=== PATIENT | female | born 1990 | race Caucasian/White ===

== ENCOUNTER 2016-09-17 05:36 | Inpatient (IN) | payer MEDICARE, OTHER ==
[2016-09-17 06:02] VITALS: BMI 38.6
[2016-09-17] MEDS ORDERED: Oxycodone/Acetaminophen 5/325 mg Tab PO PRN ×2 (06:25)
--- NOTE | 2016-09-17 06:45 | OBHP ---
Datetime: 09/17/2016 06:33 IP Adm Impression: Postterm, intrauterine ; Active labor; Intact Membranes IP Admit Plan: Admit to unit; Initiate labor protocol Admit Comment, IP Provider: 26 yo , NANY 09/15/16, EGA 40w 2d c/o contractions since 2100 hour s; stronger at 0400 hours. (+) mucoid discharge. Denied VB. care: [facility]; UTI; Rh negative - received Rhogam. P Ob: x 1: 2012, male 6lb 12oz - [facility]; no complications. 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 Denies STIs PMH: asthma; last attack 02/2016 PSH: D_C x 2 NKDA Meds: PNV Soc Hx: denies tobacco, illicit drug or EtOH use. x 4 years; lives with and son Fam Hx: Mother alive 60 y.o. - HTN, pre-DM. Father alive 75 y.o. HTN. MGM - colon cancer. No othe r fam h/o cancer P.E.: as above. Obese, in pain with contractions. Awake, alert, oriented to time, person and place . Pleasant and cooperative. at her side. Assssment: 26 yo P1021, 40w 2d, end of Stage 1 of labor. GBS (-). Rh negative, S/P Rhogam. Clinica lly stable. Encouraged to push. See delivery note Plan: 1) Admit 2) Admission labs 3) IVFs 4) Post orders, including Rhogam evaluation Pelvic Type - PN: Adequate Extremities - PN: Normal Abdomen - PN: Normal Back - PN: Normal Breast - PN: Not Done Lungs - PN: Normal Heart - PN: Normal Thyroid - PN: Not Done Neurologic - PN: Normal HEENT - PN: Normal General - PN: Normal Presentation-Admit: Vertex FHR - Baseline A Provider: 135 Contraction Comments Provider: 2-3 Comments, ACOG Physical Exam: Skin: warm, dry Fully dilated and encouraged to push All other systems reviewed and are negative Gestation - Est Wks by US: 40w 2d IP Hx Assessment: The History has been Reviewed and is Current EGA AdmitDate IP: 40.2 IP Indication for Induction: Not Applicable IP Chief Complaint: Uterine contractions NICHD Variability Prov Fetus A: Moderate 6-25bpm NICHD Accel Fetus A IP Provider: 10X10 FHR Category Provider Fetus A: Category I NICHD Decel Fetus A IP Provider: None Dilatation, Provider: 10 Effacement, Provider: 100 Station, Provider: 1 Genitourinary Exam: Normal DTRs - PN: Not Done
--- NOTE | 2016-09-17 06:49 | OBDS ---
DELIVERY PERSONNEL Delivery Doctor: Lalo Livingston MD Scrub Nurse: Taisha Ruiz Music Grapher: Yary Vela RN MATERNAL INFORMATION Delivery Anesthesia: None Medications in Delivery: Pitocin Estimated Blood Loss (ml): 350 Placenta Cultured: No Maternal Complications: None RN Comments: live baby girl born via with 9_9 Provider Comments: Uncomplicated vaginal delivery of live female , GISSELL, over intact perineum; tight nuchal cord x 1 - doubly clamped and cut. Infant's mouth and nose bulb-suctioned after delivery ; placed on mother's abdomen. Spontaneous delivery of placenta - grossly intact; 3 vessels present. Cervix, vagina, perineum examined - no lacerations. Hemostasis assured and mother bonding LABOR SUMMARY EDC: 09/15/2016 00:00 No. Babies in Womb: 1 Attempted: No Labor Anesthesia: None LABOR INFORMATION Reason for Induction: Not Applicable Onset of Labor: 09/16/2016 21:00 Complete Dilatation: 09/17/2016 05:38 Group B Beta Strep: Negative Steroids Given: None Reason Steroids Not Administered: Not Applicable MEMBRANES Membranes Rupture Method: Spontaneous Rupture of Membranes: 09/17/2016 05:45 Length of Rupture (hrs): 0.02 Amniotic Fluid Color: Clear Amniotic Fluid Amount: Moderate STAGES OF LABOR Stage 1 hrs: 8 Stage 1 min: 38 Stage 2 hrs: 0 Stage 2 min: 8 Stage 3 hrs: 0 Stage 3 min: 30 Total Time in Labor hrs: 9 Total Time in Labor min: 16 VAGINAL DELIVERY Episiotomy: None Laceration Extension: N/A Laceration Type: None Laceration Repair: Not Applicable Initial Vag Sponge Count: 10 Final Vag Sponge Count: 10 Initial Vag Sharps Count: 0 Final Vag Sharps Count: 0 Sponge Count Correct: Yes; Vaginal Sweep Performed Sharps Count Correct: Yes Count Comment: Correct BABY A INFORMATION Infant Delivery Date/Time: 09/17/2016 05:46 Method of Delivery: Vaginal Born in Route : No : N/A Forceps: N/A Vacuum Extraction: N/A Shoulder Dystocia : No SHOULDER DYSTOCIA BABY A Infant Delivery Date/Time: 09/17/2016 05:46 PRESENTATION/POSITION BABY A Presentation: Cephalic Cephalic Presentation: Vertex Vertex Position: Right Occipital Anterior Breech Presentation: N/A PLACENTA INFORMATION BABY A Placenta Delivery Time : 09/17/2016 06:16 Placenta Method of Delivery: Spontaneous Placenta Status: Delivered SCORES BABY A Heart Rate 1 min: >100 bpm Resp Effort 1 min: Good Cry Reflex Irritability 1 min: Cough or Sneeze or Pulls Away Muscle Tone 1 min: Active Motion Color 1 min: Body Kinder, Extremities Blue SCORE 1 MIN: 9 Heart Rate 5 min: >100 bpm Resp Effort 5 min: Good Cry Reflex Irritability 5 min: Cough or Sneeze or Pulls Away Muscle Tone 5 min: Active Motion Color 5 min: Body Kinder, Extremities Blue SCORE 5 MIN: 9 INFORMATION BABY A Gestational Age at Delivery: 41.2 Gestational Status: Term Outcome : Liveborn Condition : Stable Infant Sex: Female IDENTIFICATION/MEDS BABY A ID Band Number: [id number] ID Band Location: Left Leg; Left Arm Sensor Applied: Yes Sensor Number: [id number] Sensor Location : Cord Clamp WEIGHT/LENGTH BABY A Birthweight (gms): 3280 Weight (lb): 7 Weight (oz): 4 Infant Length Inches: 19.50 Length cms: 49.5 CORD INFORMATION BABY A No. Cord Vessels: 3 Nuchal Cord : Around Neck x1, Tight Cord Blood Taken: Yes Suction: Mouth; Nose ASSESSMENT BABY A Infant Complications: None Physical Findings at Delivery: Within Normal Limits Infant Respirations: Appears Normal Corporate Communications Associate/ALS Called : No Infant Care By: Shon Vera RN / Transferred To: Remains with Mother
[2016-09-17 07:04] LABS: BASO % 0.4 % (0.0-2.0); EOS # 0.1 K/uL (0.0-0.7); EOS % 0.5 % (0.0-4.0); HEMATOCRIT 36.1 % (34.0-47.0); LYMPH # 2.6 K/uL (1.0-4.3); LYMPH % 20.4 % (20.0-40.0); MEAN CELL VOLUME 85.3 fL (81.0-99.0); MEAN CORPUSCULAR HEMOGLOBIN 27.8 pg (27.0-31.0); MEAN CORPUSCULAR HGB CONC 32.6 g/dL (33.0-37.0); MONO % 7.7 % (0.0-10.0); RED CELL DISTRIBUTION WIDTH 13.2 % (11.5-14.5); WHITE BLOOD COUNT 12.6 K/uL (4.8-10.8)
[2016-09-17 07:15] LABS: RBC URINE 6 /hpf (0-3); URINE BILIRUBIN NEGATIVE (NEGATIVE); URINE BLOOD NEGATIVE (NEGATIVE); URINE COLOR Yellow (YELLOW); URINE GLUCOSE (UA) NORMAL (Normal); URINE KETONE NEGATIVE (NEGATIVE); URINE LEUKOCYTE ESTERASE NEG Leu/uL (Negative); URINE PROTEIN NEGATIVE (NEGATIVE); URINE UROBILINOGEN NORMAL mg/dL (0.2-1.0); WBC URINE 1 /hpf (0-5)
[2016-09-17 07:16] LABS: CHLORIDE 103 mmol/L (98-107); POTASSIUM 3.7 mmol/L (3.6-5.2); SODIUM 137 mmol/L (132-148)
[2016-09-17 07:18] LABS: BILIRUBIN,TOTAL 0.6 mg/dL (0.2-1.3); GFR AFRICAN-AMERICAN > 60
[2016-09-17 07:19] LABS: ALB/GLOB RATIO 1.1 (1.0-2.1); ALKALINE PHOSPHATASE 174 U/L (38-126); ALT/SGPT 46 U/L (9-52); AST/SGOT 42 U/L (14-36); BLOOD UREA NITROGEN 13 mg/dL (7-17); CALCIUM 8.9 mg/dl (8.6-10.4); CARBON DIOXIDE 21 mmol/L (22-30); GLUCOSE,RANDOM 89 mg/dL (65-105)
[2016-09-17] MEDS: Prenatal Multivit/Folic Acid/Iron Tab PO SCH (09:56)
[2016-09-18 00:23] VITALS: O2SAT 98
--- NOTE | 2016-09-18 07:36 | OBPPN ---
Datetime: 09/18/2016 07:33 PP Pain Prov: Within normal limits PP Nausea Prov: Denies PP Flatus Prov: Yes PP Abdomen/Uterus Prov: Normal PP Lochia Prov: Normal PP Extremities Prov: Normal PP Comments Phys Exam Prov: fudus below umblicus ext no edema,no edema PP Impression Prov: Normal progression PP Plan Prov: Discharge PP Progress Note Prov: pt was seen at bed side, pain under control,no n/v, tolerating deit, min loch ia, flatus+ ppd#1 s/p pt request to go home dc home no sex motrin prn f/u in 6weeks Vital Signs Provider PP: Reviewed; Within Normal Limits
--- NOTE | 2016-09-18 07:36 | OBDCSUM ---
Datetime: 09/18/2016 07:35 Discharged to, Provider: Home Follow up at, Provider: [facility]wee Disch Instr Activity: Normal activity Disch Instr Diet: Regular Discharge Diagnosis, Provider: Term Delivered Follow up in weeks, Provider: clinic Disch Activity Restrictions: No lifting; No driving; Minimize stair-climbing; No sexual activity; No thing in vagina - [place], tampons, douche Discharge Comment, Provider: dc home no sex motrin prn f/u in 6weeks Discharge Diagnosis Prov Other: s/p
[2016-09-18 07:46] LABS: HEMATOCRIT 28.5 % (34.0-47.0); MEAN CELL VOLUME 84.4 fL (81.0-99.0); MEAN CORPUSCULAR HEMOGLOBIN 28.1 pg (27.0-31.0); MEAN CORPUSCULAR HGB CONC 33.2 g/dL (33.0-37.0); MEAN PLATELET VOLUME 8.7 fL (7.2-11.7); RED CELL DISTRIBUTION WIDTH 13.4 % (11.5-14.5)
[2016-09-18 08:36] VITALS: RESP 18
[2016-09-18] MEDS: Prenatal Multivit/Folic Acid/Iron Tab PO SCH (09:51)
[2016-09-18 17:05] VITALS: BP 101/61; PULSE 68; TEMP 97.5
== END 2016-09-18 19:00 | disposition home or self-care (01) | DRG 775 ==
LOC: C.EROB 05:36 → C.4D 05:52 → C.4M 08:53
PROVIDERS: ADMIT Obstetrics & Gynecology; ATTEND Obstetrics & Gynecology
PROC: 10E0XZZ Delivery of Products of Conception, External Approach (ICD-10-PCS; principal; 2016-09-17)
DX: O69.1XX0 Labor and delivery complicated by cord around neck, with compression, not applicable or unspecified (principal); O48.0 Post-term pregnancy; Z3A.40 40 weeks gestation of pregnancy; Z37.0 Single live birth